=== PATIENT | female | born 1970 | race Caucasian/White ===

== ENCOUNTER 2024-11-11 12:41 | Outpatient (REF) | payer MEDICARE, MEDICAID, SELFPAY ==
--- OUTSIDE RECORDS SUMMARY | 2024-11-11 14:11 | XMS_ITS | Patient Health Record ---
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 Pocket Trimmer Name Role Phone Kenneth Xena Primary Care Provider ZZZMitaliation, Provider Unavailable Unavailab le Allergies Allergen (clinical drug ingredient) Drug/Non Drug Allergy documented on EMR Reaction Allergy Type Onset Date Status codeine Codeine jts swell/dizzy Drug Allergy A ctive quetiapine SEROquel rash Drug Allergy Active ampicillin Ampicillin dizzy Drug Allergy Activ e Reason For Referral No Information Medications Medication SIG (Take, Route, Frequency, Duration) Notes Start Date End Date Status LORazepam 0.5 MG 1 tab(s) orally every 8 hours prn anxiety for 30 days 05/10/2023 Active Auvelity 105 MG-45 MG 1 TAB(S) ORALLY ONCE A DAY (IN THE MORNING) for 30 DAYS *Please review and pick correct strength-formulat ion from [employer] options. If intended option is not shown, discontinue and re-order from Quick Search* 05/10/2023 Active OLANZapine 2.5 MG 1/2-1 tab orally daily at bed time for 30 day(s) 07/04/2022 Not-Taking L-Theanine ACTIVE INGREDIENT IN HERBAL TEA 1 PO BID *Please review and pick correct strength-formulat ion from [employer]ai [employer] options. If intended option is not shown, discontinue and re-order from Quick Search* Active Levothyroxine Sodium 50 MCG 1 tab(s) orally once a day for 30 day(s) Active Progesterone 100 MG 2 cap(s) orally 7 d/mo Active Levodopa 42 MG 2 ea inhaled Macuna Ac tive Pantoprazole Sodium 40 MG 1 tab(s) orally once a day Active Problems Problem Type SNOMED Code ICD Code Onset Dates Problem Status W/U Status Risk Notes Problem Moderate major depression, single episode (32235607) Major depressive disorder, single episode, moderate (F32.1) Active erroneous Dx Problem Moderate recurrent major depression (83068203) Major depressive disorder, recurrent, moderate (F33.1) Active confirmed Problem Posttraumatic stress disorder (29793142) Post-traumatic stress disorder, chronic (F43.12) Active confirmed Encounters Encounter Location Date Provider Diagnosis [facility] [address] [place] [address] 02/25/2024 Provider ZZZMigration Plan Of Treatment No Information Insurance Providers Payer Name Payer Address Payer Phone Subscriber Number Group Number Insured Name Patient Relationship to Insured Coverage Start Date Coverage End Date MEDICARE [address] [place] [phone] [id number] Jaleesa MCDANIEL Self - patient is the insured [employer] STANDARD [address] [place] [address] [id number] Jaleesa MCDANIEL Self - patient is the insured Medical (General) History Medical History History ICD Code pcp Minesh ibrahim- aviva patton - ishaan diana and jhon jarvis for therapy -= couples ever herbert [employer]- 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
--- OUTSIDE RECORDS SUMMARY | 2024-11-11 14:11 | XMS_ITS ---
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 Name Role Phone Xena Cooper Primary Care Provider ZZZMigration, Provider Unavailable Unavailab le Allergies Allergen (clinical drug ingredient) Drug/Non Drug Allergy documented on EMR Reaction Allergy Type Onset Date Status codeine Codeine jts swell/dizzy Drug Allergy A ctive ampicillin Ampicillin dizzy Drug Allergy Activ e quetiapine SEROquel rash Drug Allergy Active [facility] Encounter Medications Medication SIG (Take, Route, Frequency, Duration) Notes Start Date End Date Status LORazepam 0.5 MG 1 tab(s) orally every 8 hours prn anxiety for 30 days 05/10/2023 Active Auvelity 105 MG-45 MG 1 TAB(S) ORALLY ONCE A DAY (IN THE MORNING) for 30 DAYS *Please review and pick correct strength-formulat ion from [employer] options. If intended option is not shown, discontinue and re-order from Quick Search* 05/10/2023 Active OLANZapine 2.5 MG 1/2-1 tab orally daily at bed time for 30 day(s) 07/04/2022 Not-Taking L-Theanine ACTIVE INGREDIENT IN HERBAL TEA 1 PO BID *Please review and pick correct strength-formulat ion from [employer] options. If intended option is not shown, discontinue and re-order from Quick Search* Active Pantoprazole Sodium 40 MG 1 tab(s) orally once a day Active Levothyroxine Sodium 50 MCG 1 tab(s) orally once a day for 30 day(s) Active Progesterone 100 MG 2 cap(s) orally 7 d/mo Active Levodopa 42 MG 2 ea inhaled Macuna Ac tive Encounters Encounter Location Date Provider Diagnosis [facility] [address] [place] [address] 02/25/2024 Provider SANTANAMirigo Plan Of Treatment No Information Progress Notes * Jaleesa MCDANIELDOB:1970 (53 yo F)Acc No.[id number]:02/25/2024 Patient:?Jaleesa MCDANIEL Provider:? :1970???Age:53 Y???Sex:Female D ate:02/25/2024 Address:[address] [place] [address], [address], [place], [place] Pcp:Xena Cooper Subjective: * Chief Complaints: * ???[facility]. [facility] version Encounter. * Medical History:? * Medications:?Taking Pantopra zole Sodium 40 MG Tablet Delayed Release 1 tab(s) orally once a day , Taking Levodopa 42 MG Capsule 2 ea inhaled , Notes to Pharmacist: Rajiv, Taking Progesterone 100 MG Capsule 2 cap(s) orally 7 d/mo , Taking Levothyroxine Sodium 50 MCG Tablet 1 tab(s) orally once a day , Taking L- Theanine ACTIVE INGREDIENT IN HERBAL TEA CAPSULE 1 PO BID , Notes to Pharmacist: *Please review and pick correct strength-formulation from [facility] options. If intended option is not shown, discontinue and re-order from Quick Search*, Taking Auvelity 105 MG-45 MG TABLET, EXTENDED RELEASE 1 TAB(S) ORALLY ONCE A DAY (IN THE MORNING) , Notes to Pharmacist: *Please review and pick correct strength-formulation from [facility] options. If intended option is not shown, discontinue and re-order from Quick Search*, Taking LORazepam 0.5 MG Tablet 1 tab(s) orally every 8 hours prn anxiety , Not-Taking/PRN OLANZapine 2.5 MG Tablet 1/2-1 tab orally daily at bed time * Allergies:?Codeine: jts swel l/dizzy, Ampicillin: dizzy, SEROquel: rash - Allergy - Criticality Unknown. Objective: * Vitals:? Assessment: Plan: * Treatment: * Images: Billing Information: * Visit Code:? * Procedure Codes:? * Sign off status: Completed true * Provider:? Date:?02/25/2024 Generated for Jenelle fajardo/Darren/Johannyitting on:?11/11/2024 02:11 PM EDT
--- OUTSIDE RECORDS SUMMARY | 2024-11-11 14:11 | XMS_ITS | Data Portability ---
Author Organization [place] [facility] Address [address] [address] Care Team Providers Care Fund Controller Name Role Phone RICK BANSAL Primary Care Provider [phone] Assessment Encounter Date Assessment Date Assessment LastModified by Organization Details LastModified Time 05/28/2024 05/28/2024 53 year old female with a history of vestibular migraine. She had some difficulties with dysequilibrium in the spring time after a bout of BPPV, but this seems to have resolved. She does feel pre-menopausal horomone fluctuations have been playing a role. She had a normal MRI brain without contrast in February 2024. Ear examination today is normal. Audiogram demonstrates essentially stable hearing with normal hearing in the right ear and mild conductive loss in the left ear. I am thankful that her symptoms have improved. We reviewed the additive nature of triggers today, and how maintaining a migraine diet can help other factors from causing migraine symptoms. Encouraged her to also consider taking magnesium and B2. If she has worsening or recurrent symptoms she will call for follow up. marcela Not available 05/28/2024 10:26:25 07/10/2024 07/10/2024 Impacted cerumen was debrided bilaterally today. She will follow up with JACI Smith in six months. marcela Not available 07/10/2024 14:27:48 Plan of Treatment Reminders Order Date Submit Date Provider Last Modified By Organization Details Last Modified Time Details Appointments None record ed. Lab None record ed. Referral None record ed. Procedures None record ed. Surgeries None record ed. Imaging None record ed. Medication Orders None record ed. Patient TargetsNo targets recorded. Patient InstructionsNo instructions recorded. Reason for Referral None Reported. Results Created Date Observation Date Name Description Value Unit Range Abnormal Flag Note LastModifiedBy Organization Detail LastModifiedTime 09/25/20 24 audio gram No observ ation record ed. BARCODE Not Available 2023 09:04:59 Result Notes None recorded. Problems Name Problem SNOMED Code Status Onset Date Resolution Date Notes Provider Name and Address Organization Details Recorded Time Disorder of left Eustachia n tube 62869781801 55550 Active 2016 Other specified disorders of Eustachia n tube, left ear; Note: Date Diagnosed : 03/09/2017 12:39 PM (H69.82) Not Available [facility] 4 02:56:30 Dysphagia 46954143 Active 2015 Dysphagia , unspecifi ed; Note: Date Diagnosed : 10/12/2015 11:23 AM (R13.10) Not Available [facility] 4 02:56:30 Abrasion of skin of right ear 83431563171 506670 Active 2015 Abrasion of right ear, initial encounter ; Note: Date Diagnosed : 10/12/2015 10:57 AM (S00.411A ) Not Available [facility] 4 02:56:28 Abnormal auditory perceptio n 12286940 Active 2017 Other abnormal auditory perceptio ns, bilateral ; Note: Date Diagnosed : 05/04/2018 2:17 PM (H93.293) Not Available [facility] 4 02:56:30 Migraine 33039342 Active 2017 Other migraine, not intractab le, without status migrainos us; Note: Date Diagnosed : 8 3:21 PM (G43.809) Not Available [facility] 4 02:56:29 Impacted cerumen in left ear 90510461877 51476 Active 2022 Impacted cerumen, left ear; Note: Date Diagnosed : 12/29/2022 2:40 PM (H61.22) Not Available [facility] 4 02:56:31 Conductiv e hearing loss 39378299 Active 2015 Conductiv e hearing loss, unilatera l, left ear, with unrestric tamera hearing on the contralat eral side; Note: Date Diagnosed : 10/12/2015 11:23 AM (H90.12) Not Available [facility] 4 02:56:28 Gastroeso phageal reflux disease without esophagit is 547649907 Active 2015 Gastro-es ophageal reflux disease without esophagit is; Note: Date Diagnosed : 12/02/2015 11:06 AM (K21.9) Not Available [facility] 4 02:56:32 Foreign body in right ear 63187491628 041968 Active 2022 Foreign body in right ear, initial encounter ; Note: Date Diagnosed : 12/29/2022 2:40 PM (T16.1XXA ) Not Available [facility] 4 02:56:29 Bilateral disorder of Eustachia n tubes 83772250776 70652 Active 2017 Other specified disorders of Eustachia n tube, bilateral ; Note: Date Diagnosed : 05/04/2018 2:17 PM (H69.83) Not Available [facility] 4 02:56:30 Impacted cerumen of bilateral ears 76058085054 60811 Active 2020 Impacted cerumen, bilateral ; Note: Date Diagnosed : 1 3:17 PM (H61.23) Not Available [facility] 4 02:56:32 Dizziness and giddiness 186641938 Active 2017 Dizziness and giddiness ; Note: Date Diagnosed : 05/04/2018 2:01 PM (R42) Not Available [facility] 4 02:56:28 Mixed conductiv e and sensorine ural hearing loss of left ear 01628921803 107 Active 2023 MILADY RIDER, CARLEE [address] [facility],[place] [address], [place], [address] , [facility] - [facility] 4 09:50:45 Migraine without aura 92305571 Active 2023 KERRY LOREDO PA-C [address] [facility],[place] [address], [place], [address] , [facility] - [facility] 4 10:26:30 Conductiv e hearing loss of left ear 3872601090 Active 2023 KERRY LOREDO PA-C [address] [place] [address], [facility] [place], [address] , [facility] - [facility] 4 10:26:55 Problem Notes None recorded. Procedures Surgical History None recorded. Imaging Results Imaging Date Name Status LastModified by Organiz ation Details LastModified Time 05/29/2024 audiogram completed BARCODE Information no t available 05/29/2024 09:04:59 Procedure Notes None recorded. Medical Equipment None Reported. Allergies Allergen ID Allergen Name Allergen Category Reaction Reaction Severity Criticality Documentation Date Start Date Code Code System Note Provider Name and Address Organization Details Recorded Time 584337 ampicilli n medicatio n other Not available Not available 01/16/2024 733 RxNorm React ion: unkno wn, unspe cifie d;; Not Available [facility] 4 01:22:51 086248 codeine sulfate medicatio n other Not available Not available 01/16/2024 78874 RxNorm React ion: unkno wn, unspe cifie d;; Not Available [facility] 4 01:22:52 Medications Name Sig Start Date Stop Date Status Note LastModified by Organization Details LastModified Time bupropion HCl SR 100 mg tablet,12 hr sustained- release active Not Available Not Available Not Available levothyrox ine 50 mcg tablet 2015 active Medicatio n ID: [id number] Du ration Value: 30 Brand Name: levothyro xine Send Method: E-Prescri bed Subs Allowed: subs OK Specia l Instructi on: take 1 tablet by mouth once daily Med icationGe nericName : levothyro xine Not Available Not Available Not Available pantoprazo le 40 mg tablet,del ayed release TAKE 1 TABLET BY MOUTH TWICE A DAY 30-60 MIN BEFORE FOOD FOR 30 DAYS active Not Available Not Available No t Available triamcinol one acetonide 0.1 % topical ointment active Not Available Not Available Not Available Wellbutrin 100 mg tablet 2015 active Medicatio n ID: [id number] Br and Name: Davidbutvikas parra Send Method: E-Prescri bed Subs Allowed: subs OK Medica tionGener icName: Wellbutri n Not Available Not Available Not Available aripiprazo le 2 mg tablet 2015 active Medicatio n ID: [id number] Du ration Value: 30 Brand Name: aripipraz ole Send Method: E-Prescri bed Subs Allowed: subs OK Medica tionGener icName: aripipraz ole Not Available Not Available Not Available Flonase Allergy Relief 50 mcg/actuat ion nasal spray,susp ension 1 puff into both nostrils 2017 active Medicatio n ID: [id number] Du ration Value: 30 Prescrib ed By Name: RACHEL Nation Name: Flonase Allergy Relief Se nd Method: E-Prescri bed Subs Allowed: subs OK Medica tionGener icName: Flonase Allergy Relief Not Available Not Available Not Available Vitals Date Recorded Body height Body mass index (BMI) Body weight Provider Name and Address Organization Details Last Updated DateTime 05/28/2024 160.02 cm 24.1 kg/m2 24196.56 g Brea Schuster [facility] 05/28/2024 09:53:58 Date Recorded Body height Body mass index (BMI) Body weight Provider Name and Address Organization Details Last Updated DateTime 07/10/2024 160.02 cm 24.1 kg/m2 24591.56 g Aminata Molina [facility] 07/10/2024 13:51:59 Social History None recorded. Functional Status None recorded. Mental Status None recorded. Family History Nothing Reported. Medical History No medical history recorded. Gynecological HistoryNo gynecological history recorded. Obstetrics History GPAL:G 0 P 0 0 0 0 Past Encounters Encounter ID Performer Location Encounter Start Date Encounter Closed Date Diagnosis/Indication Diagnosis SNOMED-CT Code Diagnosis ICD10 Code Diagnosis Note [id number] GADIEL RIDLEY MD [facility] on [address] [place] [address] 05/28/2024 09:30:28 05/28/2024 11:19:18 Migraine without aura 07790621 G43.009 Dizziness and giddiness 675764361 R42 Conductive hearing loss of left ear 6069705712 H90.2 [id number] CARLEE MOORE [facility] on [address] [place] [address] 05/28/2024 09:50:05 05/28/2024 11:19:28 Mixed conductive and sensorineural hearing loss of left ear 5578893184 9107 H90.72 Audiologic al evaluation results: 05/28/2024 Right ear: {{Normal* Normal through 2 kHz Mild M oderate Mo derately-s evere Ruby re Profoun d}} {{hearing* sloping to a mild slopi ng to a moderate s loping to moderately severe slo ping to severe slo ping to profound f lat high frequency low frequency mid frequency cookie bite peterson curve}} {{with* se nsorineura l hearing loss with condu ctive hearing loss with mixed hearing loss with}} {{excellen t* good fa ir poor no measurable }} word recognitio n. Left ear: {{Normal N ormal through 2 kHz Mild* Moderate M oderately- severe Sev ere Profou nd}} {{hearing sloping to a mild slopi ng to a moderate s loping to moderately severe slo ping to severe slo ping to profound f lat* high frequency low frequency mid frequency cookie bite peterson curve}} {{with sen sorineural hearing loss with condu ctive hearing loss with* mixe d hearing loss with}} {{excellen t* good fa ir poor no measurable }} word recognitio n. Tympanomet ry: Right Ear:{{Type A* Type As Type Ad Type C Type C, shallow & rounded Ty pe B Type B with large volume Cou ld not maintain a hermetic seal}} Left Ear:{{Type A* Type As Type Ad Type C Type C, shallow & rounded Ty pe B Type B with large volume Cou ld not maintain a hermetic seal}} [id number] SHERLEY KNAPP MD [facility] on [address] [place] [address] 07/10/2024 13:49:04 07/10/2024 15:53:23 Impacted cerumen of bilateral ears 7359081669 465178 H61.23 Health Concerns Section Related Observation LastModified by Organization Detai ls LastModified Time None Recorded Concern Status LastModified by Organization Details LastModified Time None Recorded Advance Directives Directive None Recorded Payers Encounter Date Sequence Insurance Name Policy Number Policy [place] Covered Member ID Watson Member ID Guarantor Name 05/28/2024 1 [place] [employer] Jaleesa Szymanski [id number] Jaleesa Szymanski 05/28/2024 2 [place] [employer] Jaleesa Szymanski [id number] Jaleesa Szymanski 05/28/2024 1 [place] [employer] Jaleesa Szymanski [id number] Jaleesa Szymanski 05/28/2024 2 [place] [employer] Jaleesa Szymanski [id number] Jaleesa Szymanski 07/10/2024 1 [place] [employer] Jaleesa Szymanski [id number] Jaleesa Szymanski 07/10/2024 2 [place] [employer] Jaleesa Szymanski [id number] Jaleesa Szymanski Notes Date Note Type Note Provider Name and Address Organization Details Recorded Time 05/28/2024 text/html 53 year old fawn walter with a prior diagnosis of vestibular migraine in 2017 with . Her today to discuss difficulties with dysequilibrium.In January she suffered a bout of BPPV. She went to physical therapy and had treatment for the BPPV, but after it resolved she was having bouts of dysequilibrium, feeling as though she was on a boat. The episodes lasted 2-3 days at a time. She met with her PCP and they discussed the possibility of migraine. She also had an MRI of her brain without contrast in February which was normal. She reports her last dizzy episode was about two months ago. She has had some minor headaches, but nothing in the last three weeks.She does mention that she just reached menopause. She does feel as though the hormone shifts of pre-menopause were causing some of her symptoms. She has been working on the migraine diet and limiting things liked aged cheese and beans, which also may be helpful. GADIEL RIDLEY MD [address] [place] [address], [phone], [place] - [facility] 05/28/2024 11:02:50 07/10/2024 text/html 53 year old fawn walter with bilateral hearing loss and amplification. She is here today for an ear cleaning. No concerns today. SHERLEY KNAPP MD [address] [place] [address], [place], [address], [facility] - [facility] 07/11/2024 12:28:30 OBGyn Episode No OBEpisode recorded.
--- OUTSIDE RECORDS SUMMARY | 2024-11-11 14:11 | XMS_ITS ---
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 Doxy nsm. * Medical History:? Objective: * Vitals:? Assessment: Plan: * Treatment: * Images: Billing Information: * Visit Code:? * Procedure Codes:? * Electronic signature of Xena Cooper MD on 11/11/2024 at 02:11 PM EDT Sign off status: Pending * Appointment Provider:?Xena Méndez MD Date:?08/16/2023 Generated for Printing/Faxing/eTransmitting on:?11/11/2024 02:11 PM EDT
--- OUTSIDE RECORDS SUMMARY | 2024-11-11 14:11 | XMS_ITS ---
Author Organization [facility] emely Address [address] [place] [address] Care Team Providers Care Credit Analysis Manager Name Role Phone Xena Cooper Primary Care Provider [phone] REASON FOR VISIT nsm only doxy Medications Medication SIG (Take, Route, Frequency, Duration) Notes Start Date End Date Status PROGESTERONE 100 mg 2 cap(s) orally 7 d/mo Active LORAZEPAM 0.5 mg 1 tab(s) orally ever y 8 hours prn anxiety for 30 days 05/10/2023 Active OLANZAPINE 2.5 mg 1/2-1 tab orally delroy ly at bed time for 30 day(s) 07/04/2022 Not-Taking LEVODOPA 42 mg 2 ea inhaled [place] [employer] tive PANTOPRAZOLE 40 mg 1 tab(s) orally once a day Active L-THEANINE active ingredient in herbal tea 1 PO BID Act [place] AUVELITY 105 mg-45 mg 1 tab(s) orally on ce a day (in the morning) for 30 days 05/10/2023 Active LEVOTHYROXINE 50 mcg (0.05 mg) 1 tab(s) orally once a day for 30 day(s) Active Encounters Encounter Location Date Provider Diagnosis [place] [address] [place] [address] 06/13/2023 Xena Cooper Post-traumatic stress disorder, chronic F43.12 and Major depressive disorder, recurrent, moderate F33.1 Assessments Encounter Date Diagnosis (ICD Code) Assessment Notes Treatment Notes Treatment Clinical Notes Section Notes 06/13/2023 Post-traumatic stress disorder, chronic (ICD-10 - F43.12) Chronic Condition stable and controlled. 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 continue same plan with current medication and scheduled reassessment Major depressive disorder, r ecurrent, moderate Chronic Condition stable and controlled. continue same plan with current medication and scheduled reassessment Next Appt Details Follow Up: prn, Reason: Progress Notes * Jaleesa MCDANIELDOB:1970 (54 yo F)Acc No.[id number]:06/13/2023 Patient:?Jaleesa MCDANIEL Appointment Provider:?Xena cruz MD :1970???Age:52 Y???Sex:Female D ate:06/13/2023 ?N#:[id number] Address:[address] [place] [address], [address], [place] [id number] Subjective: * Chief Complaints: * ???1. Nsm only doxy. * HPI: ???Interim History:?TELEHEALTH?DOXY: This visit was conducted via HIPAA compliant software via the [employer] platform. Consent was obtained from the patient/family for delivery of medical care via TeleHealth.? pt had wanted to cx this visit but front told her charge her week was too busy or her day but kept the appointment don't think can be billed since [facility] [employer] [facility]. ???Psychology:?MOOD?ok-low- anxiety.?STRESSORS?mom failing at assisted living , moving ,?older with some health problems.?PTSD?yes exponential childhood plus adult.?SUPPORTS?support from spouse , support from family.?SLEEP DISTURBANCE?ok.? discussed not getting as much exercise as hoped to avoid meds/re depression but when exercised did feel better mood/anxiety hernandez. * ROS:?CONSTITUTIONAL:?Weight gain?no .?HEMATOLOGY/LYMPH:?Fatigue? yes.?NEUROLOGY:?Headache? yes.? * Medical History:? * Social History:?Lives: with Chris. on diability. * Medications:?Taking PANTOPRA ZOLE 40 mg delayed release tablet 1 tab(s) orally once a day , Taking LEVODOPA 42 mg capsule 2 ea inhaled , Notes to Pharmacist: Rajiv, Taking PROGESTERONE 100 mg capsule 2 cap(s) orally 7 d/mo , Taking LEVOTHYROXINE 50 mcg (0.05 mg) tablet 1 tab(s) orally once a day , Taking L-THEANINE active ingredient in herbal tea capsule 1 PO BID , Taking AUVELITY 105 mg-45 mg tablet, extended release 1 tab(s) orally once a day (in the morning) , Taking LORAZEPAM 0.5 mg tablet 1 tab(s) orally every 8 hours prn anxiety , Not-Taking/PRN OLANZAPINE 2.5 mg tablet 1/2-1 tab orally daily at bed time , Medication List reviewed and reconciled with the patient Objective: * Vitals:? * Physical Examination:?Mental status exam:?Orientation?x3.?Level of consciousness?alert.?mood?anxious.?affect?full range.?thought process?goal oriented.?speech?normal rate rhythm tone.?suicidal?no ideation.?homicidal?no ideation. paranoia?none.?auditory hallucinations?none.?visual hallucinations?none.?ideas of reference?none.?Language?intact.?fund of knowledge?full.? Assessment: * Assessment: 1.?Post-traumatic stress dis order, chronic - F43.12???2.?Major depressive disorder, recurrent, moderate - F33.1??? 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 Plan: * Treatment: 2.?Major depressive disorder , recurrent, moderate? Notes: Chronic Condition stable and controlled. continue same plan with current medication and scheduled reassessment?? * Follow Up:?prn * Images: Billing Information: * Visit Code:? 24256 Office Visit 20-29 Mins. * Procedure Codes:? * Electronic signature of Xena Cooper MD on 11/11/2024 at 02:10 PM EDT Sign off status: Pending * Appointment Provider:?Xena Méndez MD Date:?06/13/2023 Generated for Printing/Faxing/eTransmitting on:?11/11/2024 02:10 PM EDT History and Physical Notes * HPI (History of Present Illness) Category Sub-Category Detail Notes Category Not es Psychology MOOD ok-low- anxiety discussed not getting as much exercise as hoped to avoid meds/re depression but when exercised did feel better mood/anxiety hernandez SLEEP DISTURBANCE ok STRESSORS mom failing at [facility] , moving , older with some health problems SUPPORTS support from spouse , support from family PTSD yes exponential chil dhood plus adult Interim History TELEHEALTH DOXY: This visit was conducted via HIPAA compliant software via the [employer] platform. Consent was obtained from the patient/family for delivery of medical care via TeleHealth pt had wanted to cx this visit but front told her charge her week was too busy or her day but kept the appointment don't think can be billed since [facility] [employer] secondary Physical Examination Category Sub-Category Detail Notes Section Note s Mental status exam Orientation x3 Level of consciousness alert mood anxious affect full range thought process goal oriented speech normal rate rhythm t one suicidal no ideation homicidal no ideation paranoia none auditory hallucinations none visual hallucinations none ideas of reference none Language intact fund of knowledge full
== END 2024-11-11 12:42 | disposition home or self-care (01) ==
LOC: HO.SH 12:41
PROVIDERS: Visit Provider Student in an Organized Health Care Education/Training Program
DX: Z01.118 Encounter for examination of ears and hearing with other abnormal findings (principal); H90.72 Mixed conductive and sensorineural hearing loss, unilateral, left ear, with unrestricted hearing on the contralateral side
CPT/HCPCS: 92557; 92567; 92700